=== PATIENT | female | born 1965 | race Caucasian/White ===

== ENCOUNTER → 2018-10-28 16:15 | Outpatient (CLI) | payer BC, SELFPAY ==
[2018-11-02 15:03] LABS: HPV Reflexed? NOT INDICATED
--- OUTSIDE RECORDS SUMMARY | 2018-12-15 01:11 | XMS RPT_ITS ---
:1965 Author Organization OHIP Care Team Providers Name Role Phone Kirsten Donahue Attending Unavailable Kirsten Donahue Referring Unavailable TERA PEREZ Primary Care Unavailable Ching, Harshad Admitting Unavailable Toni Flowerstantinos Attending Unavailable Maia Lynne Primary Care Unavailable Tourlas, Harshad Admitting Unavailable Ching, Harshad Attending Unavailable Maia Lynne Primary Care Unavailable KIRSTEN DONAHUE Attending Unavailable KIRSTEN DONAHUE Referring Unavailable PRINCE PEREZ Primary Care Unavailable PROBLEMS PROBLEMS DATE TYPE CONDITION / ATTENDING STATUS SOURCE CODE 10/29/2018 Unknown Z12.4 - Kirsten Donahue Active [place] Encounter for Community screening for Hospital malignant Repository neoplasm of cervix / Z12.4(ICD-10) 10/20/2018 Admitting Encounter for KIRSTEN DONAHUE Active [facility] diagnosis screening Repository mammogram for malignant neoplasm of breast / Z12.31(ICD-10) PROCEDURES PROCEDURES No Procedure Records FoundRESULTS RESULTS PAP I-G W/RFX HRHPV Collected: 10/28/2018 Status: F Source: [facility] 4:15 PM [facility] REPOSITORY Order Comment: CYTOLOGY INFORMATION: - CLINICAL INFORMATION: - DATE LMP/MENOPAUSE: MENOPAUSE - COLLECTION VIAL: Thin Prep Vial - PRESIDENT PRACTICING UROLOGIST SOURCE: CERVICAL/ENDOCERVICAL - COLLECTION TECHNIQUE: BRUSH/SPATULA Specimen Comment: [id number] Specimen Comment: Source.............Cervix;Endocervix Specimen Comment: Other..............Post Menopausal Specimen Comment: No. of containers..01 ThinPrep Vial TYPE CODE TESTS RESULT OUT OF RANGE REFERENCE UNITS LAB L7400.0800 . Normal DIAGN Comment Result Comment: NEGATIVE FOR INTRAEPITHELIAL LESION AND MALIGNANCY. LAB L7400.0900 . Normal ADEQ Comment Result Comment: Satisfactory for evaluation. Endocervical and/or squamous metaplastic cells (endocervical component) are present. LAB L7400.1400 . Normal PERFORM Comment Result Comment: Marisol Daugherty, Senior Chemical Engineer (ASCP) LAB L7400.2575 . Normal TEST METHOD Comment Result Comment: This liquid based ThinPrep(R) pap test was screened with the use of an image guided system. LAB L7400.2600 . Normal . COMM LAB L7400.2700 . Normal PAPSMR Comment Result Comment: The Pap smear is a screening test designed to aid in the detection of premalignant and malignant conditions of the uterine cervix. It is not a diagnostic procedure and should not be used as the sole means of detecting cervical cancer. Both false-positive and false-negative reports do occur. LAB L7400.2800 . Normal HPV RFLX Comment Result Comment: The HPV DNA reflex criteria were not met with this specimen result therefore, no HPV testing was performed. Performed at: [address] [id number] [employer] Set Up Operator: Shamika Torres MD, Phone: [phone] Performed By: #### L7400.0350 #### [facility] (refer to report for specific site) refer to report for address and phone number SCREENING ARIS Observed: 10/20/2018 Status: F Source: [facility] 2:09 PM TWO REPOSITORY EXAMINATION: SCREENING DIGITAL BILATERAL MAMMOGRAM WITH TOMOSYNTHESIS 10/20/2018 TECHNIQUE: Screening mammography of the bilateral breasts was performed with tomosynthesis. 2D standard and 3D tomosynthesis combination imaging performed through both breasts in the MLO and CC projection. Computer aided detection was utilized in the interpretation of this exam. COMPARISON: 06/04/2016, 08/26/2014 HISTORY: Screening. FINDINGS: The breasts are heterogeneously dense, which may obscure small masses. Within that limitation, there is no new dominant mass, suspicious microcalcification, or area of architectural distortion. IMPRESSION: No mammographic evidence of malignancy. BIRADS: BIRADS - CATEGORY 1 Negative, no evidence of malignancy. Normal interval follow- up is recommended in 12 months. OVERALL ASSESSMENT - NEGATIVE A letter of notification will be sent to the patient regarding the results. [facility], along with the [employer], the [employer] [place], and [facility], recommend annual screening mammograms for women age 40 and older. Workstation ID: [id number] Dictated by: MURALI OLIVA on FriOct 21, 2018 7:32:26 AM EST Transcribed by: MURALI OLIVA on FriOct 21, 2018 7:32:26 AM EST Finalized by: MURALI OLIVA on FriOct 21, 2018 7:32:26 AM EST CBC W/ AUTO DIFF Collected: 09/17/2018 Status: F Source: [facility] 7:40 AM [facility] REPOSITORY TYPE CODE TESTS RESULT OUT OF RANGE REFERENCE UNITS LAB 91363541(L 3.6-11.0 E3/mcL OINC) Normal WBC 5.3 LAB 27590858(L 3.90-5.40 E6/mcL OINC) Normal RBC 4.13 LAB 69744639(L 12.0-16.0 G/DL OINC) Normal Hgb 13.1 LAB 00757194(L 36.0-48.0 % OINC) Normal Hct 38.4 LAB 83596876(L 11.5-14.5 % OINC) Normal RDW 13.5 LAB 24181456(L 27.0-31.0 pg OINC) High MCH 31.7 LAB 10220079(L 33.0-37.0 G/DL OINC) Normal MCHC 34.1 LAB 45096285(L 78.0-100.0 fL OINC) Normal MCV 92.9 LAB 98003728(L 7.4-11.0 fL OINC) Normal MPV 8.9 LAB 72847052(L 130-400 E3/mcL OINC) Normal Platelet 276 Performed By: #### [id number] #### MIGUEL [facility] [address] [place] [address] AUTO DIFF Collected: 09/17/2018 Status: F Source: [facility] 7:40 AM [facility] REPOSITORY Order Comment: Order Added by Discern Expert. TYPE CODE TESTS RESULT OUT OF RANGE REFERENCE UNITS LAB 64721738(L 37.0-75.0 % OINC) Normal Neutro Auto 52.2 LAB 22439738(L 20.0-55.0 % OINC) Normal Lymph Auto 31.8 LAB 93496582(L 0.0-10.0 % OINC) Normal [place] Auto 7.5 LAB 36157098(L 0.0-11.0 % OINC) Normal Eos Auto 6.6 LAB 16696693(L 0.0-2.0 % OINC) Normal Basophil Auto 1.9 LAB 43189291(L 1.4-6.5 E3/mcL OINC) Normal Neutro 2.8 Absolute LAB 51242670(L 1.2-3.4 E3/mcL OINC) Normal Lymph Absolute 1.7 LAB 78803020(L 0.0-0.7 E3/mcL OINC) Normal [place] Absolute 0.4 LAB 40315510(L 0.0-0.7 E3/mcL OINC) Normal Eos Absolute 0.4 LAB 49724475(L 0.0-0.2 E3/mcL OINC) Normal Basophil 0.1 Absolute Performed By: #### [id number] #### MIGUEL Teixeira [address] [place] [address] Collected: 09/17/2018 Status: F Source: [facility] 7:40 [facility] REPOSITORY TYPE CODE TESTS RESULT OUT OF RANGE REFERENCE UNITS LAB 87620323(L 10-20 mEq/L OINC) AGAP Normal 10 LAB 97818347(L 70-99 mg/dL OINC) Glucose Normal Lvl 90 LAB 36807200(L 6-23 mg/dL OINC) BUN Normal 13 LAB 1352467(LO 0.6-1.3 mg/dL INC) Normal Creatinine 0.8 LAB 33840097(L 8.6-10.3 mg/dL OINC) Calcium Normal Lvl 9.8 LAB 22508357(L 136-145 mEq/L OINC) Sodium Normal Lvl 140 LAB 29584958(L 3.5-5.3 mEq/L OINC) Normal Potassium Lvl 3.7 LAB 28428735(L 98-107 mEq/L OINC) Chloride Normal 104 LAB 42767084(L 21.0-32.0 mEq/L OINC) CO2 Normal 30.0 LAB 01418005(L 33-110 Int._Unit/ OINC) L Alk Phos Normal 72 LAB 80392809(L 0.0-1.2 mg/dL OINC) Bili Normal Total 0.5 LAB 02460934(L 3.4-5.0 G/DL OINC) Albumin Normal Lvl 4.5 LAB 03445567(L 6.4-8.2 gm/dL OINC) Total Normal Protein 7.3 LAB 00868153(L 7-45 Int._Unit/ OINC) L ALT Normal 17 LAB 98073330(L 9-39 Int._Unit/ OINC) L AST Normal 21 LAB 66212834(L 5.4-30.0 ratio OINC) Normal BUN/Creat Ratio 16.2 LAB 48987459(L 2.0-4.0 G/DL OINC) Globulin Normal 3.0 LAB 34885987(L 1.1-1.9 ratio OINC) A/G Normal Ratio 1.6 Performed By: #### [id number] #### MIGUEL [facility] [place] [address] EGFR Collected: 09/17/2018 Status: F Source: [facility] 7:40 AM [facility] REPOSITORY Order Comment: Order added by Discern Expert. TYPE CODE TESTS RESULT OUT OF RANGE REFERENCE UNITS LAB 56289839(LO mL/min/1.73 INC) m2 Normal eGFR >60 LAB 36863126(LO mL/min/1.73 INC) m2 Normal eGFR AA >60 Performed By: #### [id number] #### MIGUEL [facility] [address] [place] [address] LIPID PROFILE Collected: 09/17/2018 Status: F Source: [facility] 7:40 AM [facility] REPOSITORY TYPE CODE TESTS RESULT OUT OF RANGE REFERENCE UNITS LAB 57753669(LO 120-200 mg/dL INC) High Chol 204 Result Comment: TOTAL CHOLEESTEROL: <200 NORMAL 200 - 239 BORDERLINE HIGH >240 HIGH LAB 74479696(LOINC) mg/dL Normal HDL 80 LAB 11154884(LOINC) 0-130 mg/dL Normal LDL 114 Result Comment: <100 OPTIMAL 100-129 NEAR / ABOVE OPTIMAL 130-159 BORDERLINE HIGH 160-189 HIGH >190 VERY HIGH CALC LDL NOT VALID WHEN TRIGLYCERIDE IS >400 MG/DL LAB 29779373(LOINC) 0-150 mg/dL Normal Trig 52 Result Comment: <150 NORMAL 150-199 BORDERLINE HIGH 200-499 HIGH >500 VERY HIGH LAB 02347057(LOINC) Normal VLDL 10 Performed By: #### [id number] #### MIGUEL [employer] [address] [place] [address] TSH Collected: 09/17/2018 Status: F Source: [facility] 7:40 AM [facility] REPOSITORY TYPE CODE TESTS RESULT OUT OF RANGE REFERENCE UNITS LAB 38664261(LO 0.30-5.60 mcIU/mL INC) Normal TSH 1.86 Performed By: #### [id number] #### MIGUEL [facility] [address] [place] [address] ALLERGIES ALLERGIES DATE TYPE / CODE NAME / CODE REACTION SEVERITY SOURCE 05/16/2015 Drug gluten/F0060 Food Allergy Unknown [facility] Allergy/4160 43301([facility] [address](SNOMED ) Repository CT) ENCOUNTERS ENCOUNTERS ADMIT/DISCHARGE ACCOUNT NUMBER ADMITTING ENCOUNTER LOCATION SOURCE CLASS 10/28/2018 [id number] Ambulatory [facility] ding:[facility] Repository 10/20/2018 [id number] Ambulatory Building:[facility] Repository 09/17/2018/ [id number] [facility] [address] ding:[facility] Repository 09/17/2018 [id number] Ambulatory [address] [place] [address] Repository 09/01/2018/ [id number] [facility] 018 [facility] ding:[facility] racRoom: Repository Room 1 PAYERS PAYERS ENCOUNTER GUARANTOR PAYER SUBSCRIBER SOURCE 10/28/2018 CHRISTIE Primary CHRISTIE Imelda [id number] [place] Insurance:ANTHEMPolic CLEVERDOB: [place], [place] Number: [id number] [id number]: [phone] [id number] Repository [phone] () Date:[id number] [facility] [address], [place] [address]TH: 10/28/2018 Secondary NOT GIVENUNK [place] Insurance:SELF PAY Community [facility] Number: Effective Repository Date:2018-10-28 10/20/2018 [facility] CLEVERDOB: Insurance:ANTHEMPolic CLEVERDOB: Repository y Number: [id number] [place], [id number] [address] [place] [address]Frj: Date:[id number] [facility] [place] [address] [address] ()Tel: [phone]: [phone] 09/17/2018 [facility] CLEVERDOB: Insurance:AnthemPolic CLEVERDOB: Hospitals y Number: [id number] Repository [place] JAIM[place], [id number] [address] [place] [id number]: Date:Plan Name:[facility] [place] [id number]: () ()
== END ==
PROVIDERS: Family Provider Pediatrics; PCP Pediatrics; Referring Provider Obstetrics & Gynecology; Visit Provider Obstetrics & Gynecology
DX: Z12.4 Encounter for screening for malignant neoplasm of cervix (principal)
CPT/HCPCS: 88175; G0145